=== PATIENT | male | born 1995 | race Caucasian/White ===

== ENCOUNTER 2020-08-07 20:38 | Outpatient (REF) | payer OTHER, SELFPAY ==
[2020-08-09 12:41] LABS: Chlamydia Result Negative (Negative); GC Result Negative (Negative)
== END 2020-08-07 20:39 | disposition home or self-care (01) ==
LOC: NCHCN 20:38
PROVIDERS: PCP Family Medicine; Visit Provider Family Medicine
DX: Z11.3 Encounter for screening for infections with a predominantly sexual mode of transmission (principal)
CPT/HCPCS: 87491; 87591

== ENCOUNTER 2022-03-07 03:51 | Outpatient (CLI) | payer BC, SELFPAY ==
[2022-03-07 15:13] LABS: Abs Immature Grans 0.01 10^3/uL (0.0-0.06); Absolute Basophil Count 0.04 10^3/uL (0.0-0.2); Absolute Eosinophil Count 0.06 10^3/uL (0.0-0.7); Absolute Lymphocyte Count 2.45 10^3/uL (1.2-3.4); Absolute Monocyte Count 0.38 10^3/uL (0.1-0.8); Absolute Neutrophil Count 2.98 10^3/uL (1.2-6.7); Basophils % 0.7; HCT 43.2 % (40.0-50.0); HGB 15.2 g/dL (13.5-17.5); Immature Grans % 0.2; Lymphocytes % 41.4; MCH 29.8 pg (27.0-33.0); MCHC 35.2 % (32.0-36.0); MCV 85 fL (80-95); MPV 9.8 fL (8.0-11.0); Monocytes % 6.4; Neutrophils % 50.3; Platelet Count 315 10^3/uL (130-400); RDW 11.9 % (11.8-14.1); RDW-SD 36.4 fL; WBC 5.92 10^3/uL (4.4-10.8)
[2022-03-07 15:56] LABS: ALT 22 U/L (16-63); AST 10 U/L (15-37); Albumin 4.5 g/dL (3.4-5.0); Alkaline Phosphatase 45 U/L (46-116); Anion Gap 4.4 mmol/L (3-11); BUN 12 mg/dL (7-18); Bilirubin, Total 0.4 mg/dL (0.2-1.0); CO2 30.6 mmol/L (21.0-32.0); CREATININE 1.1 mg/dL (0.70-1.30); Chloride 104 mmol/L (98-107); Estimated GFR 93.19 (mL/min/1.73m2); Glucose 90 mg/dL (74-106); Potassium 4.1 mmol/L (3.5-5.1); Sodium 139 mmol/L (136-145); TSH (W/Ref FT4) 1.03 uIU/mL (0.36-3.74); Total Protein 7.4 g/dL (6.4-8.2)
[2022-03-08 16:12] LABS: Tissue Transglutaminase Ab IgA <1.2 U/mL; Tissue Transglutaminase Ab IgG <1.2 U/mL
== END 2022-03-07 03:52 | disposition home or self-care (01) ==
PROVIDERS: PCP Family Medicine; Visit Provider Family Medicine
DX: R14.0 Abdominal distension (gaseous) (principal); Z00.00 Encounter for general adult medical examination without abnormal findings; E03.9 Hypothyroidism, unspecified
CPT/HCPCS: 36415; 80053; 83516; 84443; 85025

== ENCOUNTER 2023-06-06 08:34 | Outpatient (CLI) | payer BC, SELFPAY ==
[2023-06-06 12:15] LABS: HCT 46.3 % (40.0-50.0); HGB 15.9 g/dL (13.5-17.5); MCH 29.4 pg (27.0-33.0); MCHC 34.3 % (32.0-36.0); MCV 86 fL (80-95); MPV 9.9 fL (8.0-11.0); Platelet Count 317 10^3/uL (130-400); RDW 12.2 % (11.8-14.1); RDW-SD 38.1 fL; WBC 6.66 10^3/uL (4.4-10.8)
[2023-06-06 12:24] LABS: Hemoglobin A1C 5.1 % (<5.7)
[2023-06-06 12:46] LABS: Anion Gap 6.1 mmol/L (3-11); BUN 18 mg/dL (7-18); CO2 29.9 mmol/L (21.0-32.0); CREATININE 1.1 mg/dL (0.70-1.30); Calcium 8.7 mg/dL (8.5-10.1); Calculated LDL 131 mg/dL (<100); Chloride 104 mmol/L (98-107); Cholesterol 229 mg/dL (<200); Estimated GFR 92.61 (mL/min/1.73m2); Glucose 89 mg/dL (74-106); HDL Cholesterol 47 mg/dL (40-60); Sodium 140 mmol/L (136-145); Triglyceride 259 mg/dL (<150)
[2023-06-06 18:39] LABS: HIV-1/2 Ag & Ab Screen Negative (Negative)
[2023-06-06 18:41] LABS: Hepatitis C Ab w Rflx HCV PCR Negative (Negative)
== END 2023-06-06 08:35 | disposition home or self-care (01) ==
PROVIDERS: PCP Family Medicine; Referring Provider Family Medicine; Visit Provider Family Medicine
DX: R73.01 Impaired fasting glucose (principal); I10 Essential (primary) hypertension; R45.89 Other symptoms and signs involving emotional state; Z13.6 Encounter for screening for cardiovascular disorders; Z11.4 Encounter for screening for human immunodeficiency virus [HIV]; Z00.00 Encounter for general adult medical examination without abnormal findings; E03.9 Hypothyroidism, unspecified
CPT/HCPCS: 36415; 80048; 80061; 85027; 86803; 87389; 83036; 84443

== ENCOUNTER 2024-04-07 08:01 | Outpatient (CLI) | payer BC, SELFPAY ==
[2024-04-07 12:39] LABS: Hemoglobin A1C 5.3 % (<5.7)
[2024-04-07 12:55] LABS: ALT 65 U/L (16-63); AST 21 U/L (15-37); Alkaline Phosphatase 45 U/L (46-116); Anion Gap 7.4 mmol/L (3-11); BUN 21 mg/dL (7-18); Bilirubin, Total 0.52 mg/dL (0.2-1.0); CO2 27.6 mmol/L (21.0-32.0); CREATININE 1.1 mg/dL (0.70-1.30); Calcium 9.1 mg/dL (8.5-10.1); Chloride 104 mmol/L (98-107); Estimated GFR 92.04 (mL/min/1.73m2); Glucose 95 mg/dL (74-106); Potassium 4.5 mmol/L (3.5-5.1); Sodium 139 mmol/L (136-145); Total Protein 7.1 g/dL (6.4-8.2)
== END 2024-04-07 08:02 | disposition home or self-care (01) ==
LOC: LOS 08:01
PROVIDERS: PCP Family Medicine; Referring Provider Family Medicine; Visit Provider Family Medicine
DX: Z00.00 Encounter for general adult medical examination without abnormal findings (principal); E66.09 Other obesity due to excess calories; Z68.32 Body mass index [BMI] 32.0-32.9, adult; R73.01 Impaired fasting glucose
CPT/HCPCS: 36415; 80053; 83036

== ENCOUNTER 2024-09-15 21:38 | Outpatient (REF) | payer BC, SELFPAY | END 2024-09-15 21:39 | disposition home or self-care (01) | LOC: LBN 21:38 | PROVIDERS: PCP Family Medicine; Visit Provider Family Medicine | DX: Z00.01 Encounter for general adult medical examination with abnormal findings (principal) | CPT/HCPCS: 86900; 86901 ==